=== PATIENT | male | born 1980 | race Caucasian/White ===

== ENCOUNTER 2018-10-27 06:04 | Emergency (ER) | payer SELFPAY ==
[~2018-10-27] VITALS: Ht 177.8 cm; Wt 72.2 kg
[2018-10-27 06:09] VITALS: BP 148/90
--- NOTE | 2018-10-27 06:28 | NUR ---
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
--- NOTE | 2018-10-27 06:48 | NUR ---
REPORT GIVEN TO SAUL ANDERSON
--- NOTE | 2018-10-27 07:00 | NUR ---
pt denies medical complaints. uncooperative with assessment and poc. vss. dr ferris aware and request pt dc at this time. security called and escorted people out
== END 2018-10-27 07:06 | disposition home or self-care (01) ==
LOC: ED 07:00
DX: Z01.812 Encounter for preprocedural laboratory examination (principal)
CPT/HCPCS: 99281